=== PATIENT | female | born 1950 | race Caucasian/White ===

== ENCOUNTER 2024-05-01 14:12 | Emergency (ER) | payer OTHER, SELFPAY ==
--- NOTE | ~2024-05-01 | CT_ITS ---
EXAMINATION: CT ABDOMEN AND PELVIS WITH CONTRAST CLINICAL INFORMATION: Left lower quadrant pain radiating to the left back. Diarrhea. COMPARISON: None currently available. TECHNIQUE: Multidetector volumetric images were obtained from the superior aspect of the liver through the pubic symphysis following administration 85 mL of Omnipaque 350 intravenous contrast. Sagittal and coronal reformatted images were obtained on the technologist's workstation. Oral contrast: No This CT examination was performed using dose optimization techniques as appropriate, variously including the following: *Automated exposure control *Adjustment of mA and/or kV according to patient size (this includes techniques or standardized protocols for targeted exams where dose is matched to indication/reason for exam; i.e. extremities or head) *Use of iterative reconstruction technique DLP: 2189 mGy-cm FINDINGS: LUNG BASES: The lung bases appear clear, with no evidence of inflammation or nodules. LIVER, GALLBLADDER, AND BILIARY TREE: Ernestine's lobe. Multiple (at least 8), less than 1 cm, round, homogeneous, hypodense lesions scattered throughout the liver. These were described on report of CT scan from June 01, 2015, however the images are not currently available for direct comparison. In the absence of known or suspected malignancy elsewhere, there are likely represent benign entities, such as simple cysts and/or hemangiomata. No biliary ductal dilatation is appreciated. Unremarkable appearance of the gallbladder. PANCREAS: Unremarkable SPLEEN: Unremarkable ADRENAL GLANDS: Unremarkable KIDNEYS AND URETERS: Subcentimeter benign bilateral simple renal cysts for which no further dedicated follow-up imaging as indicated. The kidneys otherwise appear unremarkable in size, shape, and attenuation. No hydronephrosis, hydroureter, or calculi seen. BLADDER: Limited by decompression and beam hardening artifact. Grossly unremarkable. GASTROINTESTINAL TRACT: Diverticulosis predominantly involving the sigmoid and descending colon. The sigmoid colon is suboptimally evaluated due to beam hardening artifact from left metallic hip replacement prosthesis. Cannot entirely exclude very mild or early proximal sigmoid diverticulitis. No abscess appreciated. The stomach and small bowel appear grossly unremarkable on this noncontrast study. Normal-appearing distal ileum and vermiform appendix. ABDOMINAL WALL: No significant hernia is appreciated. LYMPH NODES: No evidence of adenopathy by size criteria. VASCULAR: Normal variant triplication of the left renal artery. PELVIC VISCERA: Limited by beam hardening artifact. Approximately 2.1 cm or less, round, homogeneous, hypodense, bilateral ovarian structures, almost certainly benign. No follow up imaging is recommended. MUSCULOSKELETAL STRUCTURES: Status post total left hip arthroplasty. Moderate osteoarthritis of the right hip. Mild to moderate degenerative changes of the lower lumbar spine. L4 inferior endplate Schmorl's node. Relative atrophy of the left iliopsoas musculature. CT/CT abdomen pelvis w IV con IMPRESSION: Diverticulosis predominantly involving the sigmoid and descending colon. The sigmoid colon is suboptimally evaluated due to beam hardening artifact from left metallic hip replacement prosthesis. Cannot entirely exclude very mild or early proximal sigmoid diverticulitis. Additional findings as above. Electronically signed by: Facundo Granados MD 05/01/2024 04:35 PM EST
[2024-05-01 14:20] VITALS: BP 112/94; PULSE 88; RESP 18; TEMP 36.7; O2SAT 95; BMI 40.6
--- NOTE | 2024-05-01 14:20 | ED_ITS ---
HPI - Abdominal Pain General Chief Complaint: Abdominal Pain Stated Complaint: l side abd back pain diarrhea Time Seen by Provider: 05/01/24 14:44 Source: patient Mode of arrival: ambulatory Limitations: no limitations History of Present Illness ED Provider: Amanda London APRN HPI narrative: 73-year-old female with a past medical history of COPD, hypertension, hyperlipidemia presents the ER with complaints of left lower abdominal pain with radiation to the left flank since Friday. Patient reports today had some diarrhea. No associated vomiting, constipation, fevers, chills, urinary symptoms. Patient reports she is concerned because she ate some carrots prior to her symptoms which she later found out were contaminated with E coli. Related Data Previous Rx's ?Medication ?Instructions ?Recorded amoxicillin 875 mg-potassium 1 tab PO BID #14 tabs 05/01/24 clavulanate 125 mg tablet Allergies Allergy/AdvReac Type Severity Reaction Status Date / Time No Known Allergies Allergy Verified 05/01/24 14:22 [No Known Allergies*] Review of Systems Review of Systems Yes all other systems are reviewed and are negative Constitutional: Reports no additional constitutional complaints, Denies body ache(s), Denies chills, Denies fever(s), Denies headache(s) and Denies weakness Eyes: Reports no additional eye complaints and Denies change in vision Reports system reviewed and no additional complaints, except as documented, Denies dizziness, Denies headache(s), Denies nasal congestion, Denies nasal discharge and Denies neck pain Cardiovascular: Reports no additional cardiovascular complaints, Denies chest pain, Denies leg edema and Denies dyspnea Respiratory: Reports no additional respiratory complaints, Denies cough and Denies dyspnea Gastrointestinal: Reports no additional gastrointestinal complaints, Reports abdominal pain, Denies melena, Denies hematochezia, Reports diarrhea, Denies nausea and Denies vomiting Genitourinary: Reports no additional female genitourinary complaints and Denies urinary incontinence Musculoskeletal: Reports no additional musculoskeletal complaints, Denies back pain, Denies arthralgias, Denies joint swelling, Denies neck pain, Denies numbness and Denies tingling Skin/Breast: Reports system reviewed and no additional complaints, except as docu and Denies rash Reports system reviewed and no additional complaints, except as documented, Denies Abnormal speech present, Denies dizziness, Denies headache(s), Denies numbness, Denies tingling and Denies weakness [facility] Past Medical History Attestation statement: The following information was validated with the patient. Source: old records reviewed and nursing notes reviewed Social History Social History Advance Directives: No Advance Directives Information Provided: No Do you have a plan to hurt others: No Plan Physical Exam ED Vital Signs: Vital Signs - 24 hr 05/01/24 14:20 05/01/24 16:39 Temperature 98.0 F 97.8 F Pulse Rate 88 79 Respiratory Rate 18 16 Blood Pressure 112/94 H 153/80 H Pulse Oximetry 95 96 Oxygen Delivery Method Room Air Room Air BMI result Body Mass Index 40.6 Const General: cooperative, healthy appearing, comfortable and no acute distress Orientation/consciousness: patient oriented x3 Limitations: no limitations HENMT Head: Yes normal to inspection Ears: hearing grossly normal bilaterally General nose exam: Normal external nose present Face and sinus: Yes normal facial exam Mouth: Normal oral and palatal mucosa present Throat: Yes posterior oropharynx normal Eyes General: appearance normal, both eyes and all related structures Pupils: Equal, round and reactive pupils present Neck Neck: Yes normal visual inspection Chest Chest palpation & inspection: normal inspection of the chest Resp Effort & Inspection: normal respiratory effort Auscultation: clear to auscultation bilaterally Cardio Rate: regular rate Rhythm: regular rhythm Peripheral pulses: Peripheral pulses 2+ throughout GI Inspection: Yes normal to inspection Palpation (GI): Soft to palpation, Tenderness to palpation present (GI) in the LLQ; with no rebound tenderness and no guarding Auscultation: normal bowel sounds Back/Spine/Pelvis Thoracic/Lumbar Spine: thoracic and lumbar spine normal to inspection Back/spine/pelvis image: 2 1. Area of non blanchable, non sloughing rash Skin General skin exam: no rashes or lesions noted Neuro General: patient oriented x3, no focal motor deficits and normal sensation to monofilament Cranial nerves: Yes Equal, round and reactive pupils present Cognition (Neuro): normal cognition Speech: No Abnormal speech present Gait exam (Neuro): Normal gait present Motor exam (neuro): 5/5 motor strength present throughout Extrem General: Yes normal to inspection Course Course Course Narrative: This is a Rapid Medical Exam performed in triage by Ellie Beltre PA-C. Full HPI, ROS and PE to be performed by primary ED provider. 73 yo F w/PMHx diverticulitis presenting to the ED c/o LLQ abdominal pain radiating to back x3 days w/assoc diarrhea. denies fever, hx abdominal surgery, renal stones, urinary sx PE: abdomen soft, mild LLQ ttp, no rebound or guarding Plan: labs, UA, CT Reevaluation(s) Reevaluation #1: CT shows early diverticulitis. Labs normal. UA shows no signs of infection. Patient declined pain medication. She is tolerating p.o.. Unable to provide stool samples while she was in the emergency room. Will discharge home with antibiotic and strict return precautions. Medical Decision Making Medical Decision Making [facility] Narrative: 73 yo female here with complaints of left flank pain which radiates to the left lower abdomen for 5 days, diarrhea today, concern for exposure to carrots that were contaminated with E coli. Exam patient has tenderness the left lower quadrant no rebound or guarding. Abdomen is soft, normal bowel sounds. She does have a rash of the left flank which is not blanchable and non sloughing. I do not appreciate any vesicles however I do consider shingles. Will obtain labs, UA, CT, stool studies Differential Diagnosis Differential Diagnoses: The differential diagnosis associated with the presentation includes Infectious diarrhea diverticulitis Herpes zoster Admission/Observation Consideration of admission/observation: Escalation of care including admission/observation considered Patient has diverticulitis on CT scan. She has no leukocytosis. She is afebrile. Her pain is well controlled. Will discharge her home with oral antibiotics Lab Data [facility] Lab Attestation statement: I reviewed the patient's lab results. 05/01/24 14:34 05/01/24 14:34 Labs: Lab Results 05/01/24 Range/Units 14:34 WBC 4.7 L (4.8-10.8) X10*3/uL RBC 4.49 (4.20-5.50) X10*6/uL Hgb 13.5 (12.0-16.0) g/dl Hct 38.8 (37.0-47.0) % MCV 86.4 (80.0-98.0) fL MCH 30.1 (27.0-33.0) pg MCHC 34.8 (31.0-35.0) g/dl RDW 13.2 (11.0-16.0) % Plt Count 206 (160-400) X10*3/uL MPV 10.4 (9.4-12.3) fL Immature Gran % (Auto) 0.4 (0.0-0.4) % Neut % (Auto) 61.4 (45-73) % Lymph % (Auto) 18.4 L (20-40) % [place] % (Auto) 17.9 H (2-11) % Eos % (Auto) 1.5 (0-4) % Baso % (Auto) 0.4 (0-2) % Lymph # (Auto) 0.9 L (1.2-4.9) X10*3/uL [place] # (Auto) 0.9 (0.1-1.2) X10*3/uL Eos # (Auto) 0.1 (0.0-0.4) X10*3/uL Baso # (Auto) 0.0 (0.0-0.2) X10*3/uL Abs Immat Gran (auto) 0.02 (0.00-0.03) X10*3/uL Absolute Neuts (auto) 2.9 (2.0-8.3) x10*3/uL Absolute Nucleated RBC 0.000 (0.0-0.012) X10*3/uL Nucleated RBC % (auto) 0.0 (0.0-0.2) /100WBC PT 11.1 (10.9-12.4) SEC INR 1.0 (0.9-1.1) Sodium 133 L (135-145) mmol/L Potassium 4.1 (3.3-5.1) mmol/L Chloride 101 (96-108) mmol/L Carbon Dioxide 25 (22-29) mmol/L Anion Gap 11 L (12-20) BUN 8 L (9-16) mg/dL Creatinine 0.75 (0.5-1.4) mg/dL Estim Creat Clear Calc 73.0 Estimated GFR > 60 Random Glucose 83 (60-115) mg/dL Calcium 10.2 (8.4-10.2) mg/dL Magnesium 2.0 (1.6-2.6) mg/dL Total Bilirubin 0.5 (0.0-1.0) mg/dL Direct Bilirubin 0.2 (0.0-0.5) mg/dL AST 24 (5-31) U/L ALT 23 (0-31) U/L Alkaline Phosphatase 139 H (39-117) U/L Total Protein 6.3 L (6.5-8.0) g/dL Albumin 4.1 (3.5-5.0) g/dL Lipase 25 (8-78) U/L Urine Color Yellow Urine Appearance Clear Urine pH 6.0 (5.0-9.0) Ur Specific [place] 1.015 (1.005-1.025) Urine Protein Trace (Neg-Trace) mg/dL Urine Glucose (UA) Negative (Negative) mg/dL Urine Ketones Negative (Negative) mg/dL Urine Blood Negative (Negative) Urine Nitrite Negative (Negative) Ur Leukocyte Esterase Negative (Negative) Independent Interpretation I performed an independent interpretation of an: CT Scan Interpretation: I independently reviewed the CT scan agree with the radiology report Radiology Impression Discussion of test interpretation with radiology: I have reviewed the radiologist's reading. Radiologist Impression: [place] [id number] CT Scan Report Signed Patient: Claudia Barbosa V MR#: [id number] : 1950 Acct:[id number] Age/Sex: 73 / F ADM Date: 05/01/24 Loc: .ED Attending Dr: Ordering Physician: Ellie Beltre Date of Service: 05/01/24 Procedure(s): CT abdomen pelvis w IV con Accession Number(s): [id number] cc: Harry Dang MD; Ellie Beltre~ EXAMINATION: CT ABDOMEN AND PELVIS WITH CONTRAST CLINICAL INFORMATION: Left lower quadrant pain radiating to the left back. Diarrhea. COMPARISON: None currently available. TECHNIQUE: Multidetector volumetric images were obtained from the superior aspect of the liver through the pubic symphysis following administration 85 mL of Omnipaque 350 intravenous contrast. Sagittal and coronal reformatted images were obtained on the technologist's workstation. Oral contrast: No This CT examination was performed using dose optimization techniques as appropriate, variously including the following: *Automated exposure control *Adjustment of mA and/or kV according to patient size (this includes techniques or standardized protocols for targeted exams where dose is matched to indication/reason for exam; i.e. extremities or head) *Use of iterative reconstruction technique DLP: 2189 mGy-cm FINDINGS: LUNG BASES: The lung bases appear clear, with no evidence of inflammation or nodules. LIVER, GALLBLADDER, AND BILIARY TREE: Ernestine's lobe. Multiple (at least 8), less than 1 cm, round, homogeneous, hypodense lesions scattered throughout the liver. These were described on report of CT scan from June 01, 2015, however the images are not currently available for direct comparison. In the absence of known or suspected malignancy elsewhere, there are likely represent benign entities, such as simple cysts and/or hemangiomata. No biliary ductal dilatation is appreciated. Unremarkable appearance of the gallbladder. PANCREAS: Unremarkable SPLEEN: Unremarkable ADRENAL GLANDS: Unremarkable KIDNEYS AND URETERS: Subcentimeter benign bilateral simple renal cysts for which no further dedicated follow-up imaging as indicated. The kidneys otherwise appear unremarkable in size, shape, and attenuation. No hydronephrosis, hydroureter, or calculi seen. BLADDER: Limited by decompression and beam hardening artifact. Grossly unremarkable. GASTROINTESTINAL TRACT: Diverticulosis predominantly involving the sigmoid and descending colon. The sigmoid colon is suboptimally evaluated due to beam hardening artifact from left metallic hip replacement prosthesis. Cannot entirely exclude very mild or early proximal sigmoid diverticulitis. No abscess appreciated. The stomach and small bowel appear grossly unremarkable on this noncontrast study. Normal-appearing distal ileum and vermiform appendix. ABDOMINAL WALL: No significant hernia is appreciated. LYMPH NODES: No evidence of adenopathy by size criteria. VASCULAR: Normal variant triplication of the left renal artery. PELVIC VISCERA: Limited by beam hardening artifact. Approximately 2.1 cm or less, round, homogeneous, hypodense, bilateral ovarian structures, almost certainly benign. No follow up imaging is recommended. MUSCULOSKELETAL STRUCTURES: Status post total left hip arthroplasty. Moderate osteoarthritis of the right hip. Mild to moderate degenerative changes of the lower lumbar spine. L4 inferior endplate Schmorl's node. Relative atrophy of the left iliopsoas musculature. CT/CT abdomen pelvis w IV con IMPRESSION: Diverticulosis predominantly involving the sigmoid and descending colon. The sigmoid colon is suboptimally evaluated due to beam hardening artifact from left metallic hip replacement prosthesis. Cannot entirely exclude very mild or early proximal sigmoid diverticulitis. Additional findings as above. Independent Historian Clinical information obtained from an independent historian. History obtained from or confirmed by: Other (son) Medications Administered Discontinued Medications Generic Name Dose Route Start Last Admin Trade Name Freq PRN Reason Stop Dose Admin Iohexol 100 ml 05/01/24 15:27 05/01/24 15:27 Iohexol 350 Mg/Ml 100 Ml Infus..Btl IV 05/01/24 15:28 85 ml ONCE ONE Administration Discharge Plan Discharge Clinical Impression: Diverticulitis Patient Disposition: Home, Self-Care Instructions: Diverticulitis (ED), Diverticulitis Diet (ED) Additional Instructions: Return for worsening pain, fever or vomiting Prescriptions: New amoxicillin-pot clavulanate 875-125 mg tablet 1 tab PO BID Qty: 14 0RF Referrals: Harry Dang MD [Primary Care Provider] - 1 week Print Language: Surinamese
[2024-05-01 14:39] LABS: MANUAL DIFF FLAG NO
[2024-05-01 14:44] LABS: Basophils Percent Auto 0.4 % (0-2); Eosinophils Absolute Auto 0.1 X10*3/uL (0.0-0.4); Eosinophils Percent Auto 1.5 % (0-4); Hematocrit 38.8 % (37.0-47.0); Hemoglobin 13.5 g/dl (12.0-16.0); Imm Gran Abs Auto 0.02 X10*3/uL (0.00-0.03); Imm Gran Pct Auto 0.4 % (0.0-0.4); Lymphocytes Absolute Auto 0.9 X10*3/uL (1.2-4.9); Lymphocytes Percent Auto 18.4 % (20-40); Mean Corpuscular HGB Conc 34.8 g/dl (31.0-35.0); Mean Corpuscular Hemoglobin 30.1 pg (27.0-33.0); Mean Corpuscular Volume 86.4 fL (80.0-98.0); Mean Platelet Volume 10.4 fL (9.4-12.3); Monocytes Absolute Auto 0.9 X10*3/uL (0.1-1.2); Monocytes Percent Auto 17.9 % (2-11); Neutrophils Absolute Auto 2.9 x10*3/uL (2.0-8.3); Neutrophils Percent Auto 61.4 % (45-73); Platelet Count 206 X10*3/uL (160-400); Red Blood Count 4.49 X10*6/uL (4.20-5.50); Red Cell Distribution Width 13.2 % (11.0-16.0); White Blood Count 4.7 X10*3/uL (4.8-10.8)
[2024-05-01 14:45] LABS: Appearance Urine Clear; Color Urine Yellow; Glucose Urine UA Negative (Negative); Leukocyte Esterase Urine Negative (Negative); Nitrite Urine Negative (Negative); Specific Gravity - Urine 1.015 (1.005-1.025); Urine Blood Negative (Negative); Urine Ketones Negative (Negative); Urine Protein Trace mg/dL (Neg-Trace)
[2024-05-01 14:49] LABS: Prothrombin Time 11.1 SEC (10.9-12.4)
[2024-05-01 15:05] LABS: Alanine Aminotransferase 23 U/L (0-31); Albumin Level 4.1 g/dL (3.5-5.0); Anion Gap 11 (12-20); Aspartate Amino Transferase 24 U/L (5-31); Bilirubin Direct 0.2 mg/dL (0.0-0.5); Bilirubin Total 0.5 mg/dL (0.0-1.0); Blood Urea Nitrogen 8 mg/dL (9-16); Calcium 10.2 mg/dL (8.4-10.2); Carbon Dioxide 25 mmol/L (22-29); Chloride 101 mmol/L (96-108); Estimated Glomerular Filt Rate > 60; Glucose Random 83 mg/dL (60-115); Lipase 25 U/L (8-78); Potassium 4.1 mmol/L (3.3-5.1); Sodium 133 mmol/L (135-145); Total Protein 6.3 g/dL (6.5-8.0)
[2024-05-01] MEDS: iohexoL 350 MG/ML 100 ML INFUS..BTL IV (15:27)
[2024-05-01 15:28] LABS: Alkaline Phosphatase 139 U/L (39-117)
[2024-05-01 16:39] VITALS: BP 153/80; PULSE 79; RESP 16; TEMP 36.6; O2SAT 96
[2024-05-01 16:59] VITALS: BP 153/80; PULSE 79; RESP 16; TEMP 36.6; O2SAT 96
== END 2024-05-01 16:59 | disposition home or self-care (01) ==
PROVIDERS: Physician Assistant; Emergency Provider Emergency Medicine; PCP Internal Medicine
DX: K57.32 Diverticulitis of large intestine without perforation or abscess without bleeding (principal); J44.9 Chronic obstructive pulmonary disease, unspecified; I10 Essential (primary) hypertension; E78.5 Hyperlipidemia, unspecified
CPT/HCPCS: 36415; 74177; 80048; 80076; 81003; 83690; 83735; 85025; 85610; 99284; Q9967